=== PATIENT | female | born 1980 | race Hispanic/Latino ===

== ENCOUNTER 2016-08-15 17:42 | Emergency (ER) | payer OTHER ==
--- NOTE | 2016-08-15 21:06 | RAD ---
LEFT SHOULDER THREE VIEWS: 08/15/16 No fracture, dislocation, or AC joint widening was seen. The scapula and visible adjacent ribs appea r intact. The visible left lung is clear. There is some mild gaseous distention of the stomach with mild elevation of the left hemidiaphragm. IMPRESSION: No significant bony finding. POS: HOME
== END 2016-08-15 18:09 | disposition home or self-care (01) ==
LOC: BURERS 17:42
DX: S40.012A Contusion of left shoulder, initial encounter (principal); E11.9 Type 2 diabetes mellitus without complications; W18.30XA Fall on same level, unspecified, initial encounter

== ENCOUNTER 2017-08-12 15:58 | Emergency (ER) | payer OTHER ==
[2017-08-12] MEDS ORDERED: Ketorolac Tromethamine 30 MG/ML VIAL ONE (16:27)
[2017-08-12] MEDS ORDERED: Fentanyl 100 MCG/2 ML VIAL ONE (16:27)
[2017-08-12 16:31] LABS: Base Excess -3.6 mEq/L (-2 - +2); pH (venous) 7.3 (7.35-7.45)
[2017-08-12 16:32] LABS: Hemoglobin (Hb) 10.5 g/dL (11.7-15.5)
[2017-08-12 16:42] LABS: BHCG - Serum Negative (NEGATIVE); Pregs Control Background? CLEAR/WHITE (CLR/WHITE); Pregs Control Bar Appear? YES (CONTROL BAR)
[2017-08-12 16:43] LABS: CKMB 0.4 ng/mL (0-6.6)
[2017-08-12 16:45] LABS: INR-International Normal Ratio 1.1
[2017-08-12 16:46] LABS: PTT 35.2 SEC (22.9-36.1)
[2017-08-12 16:47] LABS: ALT (SGPT) 11 U/L (8-55); AST (SGOT) 29 U/L (5-34); Albumin 3.7 g/dL (3.5-5.0); Alkaline Phosphatase 65 U/L (40-150); Anion Gap 19 mmol/L (10-20); Bilirubin, Total 0.6 mg/dL (0.2-1.2); Calc. Creatinine Clearance 0 mL/min (70-130); Carbon Dioxide 22 mmol/L (22-29); Chloride 99 mmol/L (98-107); Estimated GFR-MDRD 69; Globulin 4.7 g/dL (2.4-3.5); Glucose 257 mg/dL (70-105); Lipase 66 U/L (8-78); Potassium 3.6 mmol/L (3.5-5.1); Protein, Total 8.4 g/dL (6.0-8.3); Sodium 136 mmol/L (136-145)
[2017-08-12] MEDS ORDERED: Azithromycin 500 MG VIAL ONE ×2 (16:49→16:52)
[2017-08-12 16:51] LABS: #Basophils 0.1 thou/uL (0.0-0.2); #Eosinphils 0.4 thou/uL (0.0-0.7); #Lymphocytes 0.7 thou/uL (1.20-3.40); #Monocytes 0.4 thou/uL (0.11-0.59); #Neutrophils 9.9 thou/uL (1.40-6.50); %Basophils 0.7 % (0.0-1.0); %Eosinophils 3.8 % (0.0-10.0); %Lymphocytes 6.3 % (21.0-51.0); %Monocytes 3.2 % (0.0-10.0); %Neutrophils 85.9 % (42.0-75.0); Elliptocytes SLIGHT = 2-5 cells (100X) (0-1/hpf); Eosinophils 5 % (0-10); Hemoglobin 10.2 g/dL (12.0-16.0); Lymphocytes 5 % (21-51); MDiff Complete? YES; Mean Corpuscular HGB CONC 34.7 g/dL (32.0-36.0); Mean Corpuscular Hemoglobin 27.2 pg (27.0-31.0); Mean Corpuscular Volume 78.6 fl (81.0-99.0); Mean Platelet Volume 9.5 fL (7.4-10.4); Microcytosis SLIGHT = 6-15 cells (100X) (0-5/hpf); Monocytes 4 % (0-10); Neutrophil 85 % (42-75); Platelet Count 400 thou/uL (130-400); RBC Distribution Width 12.8 % (11.5-14.5); Reactive Lymphocytes 1 % (0-10); Red Blood Cell (RBC) Count 3.74 mill/uL (4.20-5.40); Tear Drops SLIGHT = 2-5 cells (100X) (0-1/hpf); White Blood Cell (WBC) Count 11.5 thou/uL (4.8-10.8)
[2017-08-12 16:53] LABS: BUN (Urea Nitrogen) 13 mg/dL (7.0-18.7)
[2017-08-12 16:55] LABS: Troponin I Less than 0.010 ng/mL (< 0.028)
[2017-08-12 17:01] LABS: Bilirubin Negative (Negative); Blood, Urine Negative (Negative); Clarity Cloudy (Clear); Glucose, Urine (Dipstick) Negative (Negative); Leukocyte Trace (Negative); Nitrite Positive (Negative); Protein, Urine (Dipstick) 100 mg/dL (Neg-Trace); pH, Urine 6.5 (5.0-9.0)
[2017-08-12 17:06] LABS: Bacteria/HPF 4+ HPF (None Seen); Crystals/HPF None Seen HPF (Negative); Hyaline Casts/LPF NONE SEEN LPF (0-3 Hyaline); Other Casts/LPF None Seen LPF (0-3 Hyaline); Oval Fat Bodies/HPF None Seen HPF (None Seen); RBC/HPF None Seen HPF (0-3); Renal Epithelial None Seen HPF (0-3); Sperm/HPF None Seen HPF (None Seen); Squamous Epithelial 0-3 HPF (0-3); Transitional Epithelial NONE SEEN HPF (0-3); Trichomonas/HPF None Seen HPF (None Seen); WBC/HPF 0-3 HPF (0-3); Yeast-All Forms None Seen HPF (None Seen)
[2017-08-12 17:09] LABS: CK (CPK) Less than 90 U/L (29-168)
[2017-08-12] MEDS ORDERED: Sulfameth/Trimethoprim DS 800-160mg TAB ONE (17:46)
[2017-08-12] MEDS ORDERED: methylPREDNISolone Sod Succ/PF 125 MG/2 ML VIAL ONE (17:46)
--- NOTE | 2017-08-12 20:57 | RAD ---
PORTABLE CHEST: 08/12/17 Comparison is made with a prior study of 02/23/15. This portable film at 1602 shows a normal sized heart. There is diffuse interstitial prominence in th e lungs bilaterally with the findings being fairly symmetrical. Infectious etiologies come to mind [facility] as viral or mycoplasmal diseases. There is no focal lobar infiltrate or effusion. While the reuben a re arguably a little more prominent than before, given the symmetry of findings, entity such as pulmo nary embolism are probably less likely. The prominence could just be due to magnification from AP romulo hnique or even a small amount of adenopathy. Trachea is midline. The bony structures appear normal. IMPRESSION: Mild interstitial prominence. Consider the possibility of viral and mycoplasmal etiologies amongst ot hers. Findings discussed with Dr. Bingham at 1634 on 08/12/17. Code CR POS: HOME
== END 2017-08-12 18:43 | disposition short-term general hospital (02) ==
LOC: BURERS 15:58
DX: A40.3 Sepsis due to Streptococcus pneumoniae (principal); N39.0 Urinary tract infection, site not specified; E11.9 Type 2 diabetes mellitus without complications; M86.9 Osteomyelitis, unspecified; M48.00 Spinal stenosis, site unspecified; B20 Human immunodeficiency virus [HIV] disease
CPT/HCPCS: 71045; 80053; 81003; 81015; 82553; 82805; 83605; 83615; 83690; 84484; 84703; 85025; 85610; 85730; 87040; 87077; 87149; 87186; 93005; 96361; 96365; 96368; 96375; J0456; J1885; J1956; J2930; J3010

== ENCOUNTER 2017-10-26 21:30 | Emergency (ER) | payer OTHER ==
[2017-10-26 22:23] LABS: Bilirubin Negative (Negative); Blood, Urine Negative (Negative); Clarity Hazy (Clear); Glucose, Urine (Dipstick) Negative (Negative); Leukocyte Trace (Negative); Nitrite Negative (Negative); Protein, Urine (Dipstick) > or equal to 300 mg/dL (Neg-Trace); Specific Gravity, Urine 1.027 (1.002-1.036)
[2017-10-26 22:44] LABS: Base Excess -3.2 mEq/L (-2 - +2); pH (venous) 7.28 (7.35-7.45)
[2017-10-26 22:45] LABS: Hemoglobin (Hb) 11.2 g/dL (11.7-15.5)
[2017-10-26 22:49] LABS: Bacteria/HPF Rare-Few HPF (None Seen); RBC/HPF 0-3 HPF (0-3); Squamous Epithelial 0-3 HPF (0-3); WBC/HPF 0-3 HPF (0-3)
[2017-10-26 22:55] LABS: Mean Corpuscular HGB CONC 33.8 g/dL (32.0-36.0); Mean Corpuscular Volume 79.7 fl (81.0-99.0); Mean Platelet Volume 9.2 fL (7.4-10.4); Platelet Count 116 thou/uL (130-400); RBC Distribution Width 15.2 % (11.5-14.5); Red Blood Cell (RBC) Count 4.06 mill/uL (4.20-5.40); White Blood Cell (WBC) Count 5.2 thou/uL (4.8-10.8)
[2017-10-26 22:57] LABS: ALT (SGPT) 13 U/L (8-55); AST (SGOT) 24 U/L (5-34); Alkaline Phosphatase 74 U/L (40-150); Anion Gap 15 mmol/L (10-20); BUN (Urea Nitrogen) 15 mg/dL (7.0-18.7); Bilirubin, Total 0.5 mg/dL (0.2-1.2); Calc. Creatinine Clearance 0 mL/min (70-130); Calcium 8.9 mg/dL (7.8-10.44); Carbon Dioxide 23 mmol/L (22-29); Chloride 108 mmol/L (98-107); Estimated GFR-MDRD 57; Globulin 4.3 g/dL (2.4-3.5); Glucose 102 mg/dL (70-105); Potassium 3.5 mmol/L (3.5-5.1); Protein, Total 8.3 g/dL (6.0-8.3); Sodium 142 mmol/L (136-145)
[2017-10-26 22:59] LABS: CKMB 0.5 ng/mL (0-6.6); Troponin I Less than 0.010 ng/mL (< 0.028)
[2017-10-26 23:10] LABS: #Basophils 0.1 thou/uL (0.0-0.2); #Eosinphils 0.3 thou/uL (0.0-0.7); #Lymphocytes 0.4 thou/uL (1.20-3.40); #Monocytes 0.3 thou/uL (0.11-0.59); #Neutrophils 4.2 thou/uL (1.40-6.50); %Basophils 1.7 % (0.0-1.0); %Eosinophils 6.7 % (0.0-10.0); %Monocytes 4.9 % (0.0-10.0); %Neutrophils 79.7 % (42.0-75.0); Anisocytosis SLIGHT = 6-15 cells (100X) (0-5/hpf); Hypochromia SLIGHT = 6-15 cells (100X) (0-5/hpf); MDiff Complete? YES; PLT Morphology Comment Appears Decreased
--- NOTE | 2017-10-27 07:20 | RAD ---
CHEST 2 VIEWS: DATE: 10/26/17. FINDINGS: Comparison is made with a 08/12/17 study. No major lobar consolidation or effusion was seen. The markings around the left hilum are perhaps a little more prominent than the right, but this could be due to positioning and rotation. Otherwise, the exam was unremarkable. The trachea is midline. IMPRESSION: Probably negative study. POS: HOME
== END 2017-10-27 00:20 | disposition short-term general hospital (02) ==
LOC: BURERS 21:30
DX: J18.9 Pneumonia, unspecified organism (principal); B20 Human immunodeficiency virus [HIV] disease; E11.9 Type 2 diabetes mellitus without complications
CPT/HCPCS: 71046; 80053; 81003; 81015; 82553; 82805; 84484; 85025; 85652; 87040; 87086; 93005

== ENCOUNTER 2019-01-31 15:30 | Emergency (ER) | payer OTHER ==
--- NOTE | 2019-01-31 16:17 | CT ---
CT BRAIN WITHOUT CONTRAST: Date: 01/31/19 HISTORY: Fever. FINDINGS: No evidence of acute infarct, hemorrhage, midline shift, or abnormal extra-axial fluid collections ar e seen. The ventricular size is appropriate and the basilar cisterns are patent. There is mucosal dis ease in the paranasal sinuses. IMPRESSION: No CT evidence of acute intracranial process. POS: [facility]
== END 2019-01-31 16:06 | disposition home or self-care (01) ==
LOC: BURERS 15:30
DX: S00.81XA Abrasion of other part of head, initial encounter (principal); S00.211A Abrasion of right eyelid and periocular area, initial encounter; E11.9 Type 2 diabetes mellitus without complications; V29.9XXA Motorcycle rider (driver) (passenger) injured in unspecified traffic accident, initial encounter
CPT/HCPCS: 70450